=== PATIENT | female | born 1995 | race Caucasian/White ===

== ENCOUNTER 2024-05-15 11:33 | Outpatient (AMB) | payer OTHER, SELFPAY ==
--- NOTE | 2024-05-15 11:38 | HO.NEPHOV ---
Vital Signs 05/15/24 11:40 Height 5 ft 8 in Weight 287 lb 6 oz BMI 43.7 BP 92/60 Blood Pressure Location Lt brachial Position Sitting Pulse 78 Pulse Source Pulse Oximeter Pulse Oximetry (%) 97 Oxygen Delivery Method Room Air Intake Visit Reasons: DX CKD- Conf Tape Control Skin Or Spar Mill Operator Required: No Accompanied by: Self / Same As Patient Allergies No Known Allergies Allergy (Verified 05/15/24 11:42) HPI Comments Details: I had the privilege of seeing April in consultation and transfer care for high serum creatinine. She was seen by fire investigator in [facility] regarding possible kidney disease. She had a serum creatinine 1.4 in November of 2021 which had improved to 1.3 in December of 2022 which further improved to 1.1 in April last year. She had a gallbladder surgery in 2010 but is unsure about her serum creatinine at that time. She had another set of blood work done in 2017 as routine checkup. She claimed that nobody had mentioned any abnormal serum creatinine on both of those occasions. She has no history of recurrent UTI as a child. She has no history of any cocaine use. She has gained about 100 lb in weight when she went to college. She is not a diabetic . She has no joint pains, joint swellings, pedal edema, microscopic hematuria, recurrent sore throat, sinusitis, photosensitivity, skin rashes. She has no family history of any renal diseases, renal replacement or transplantation. She has no history of any cardiac issues. He is not known to have any proteinuria but was mentioned that she has had microscopic hematuria. She had COVID in January of 2022. She denies any nephrolithiasis, hearing deficits. She had some tiredness and hair loss in 2021 for which she was tested for hypothyroidism which was negative but was found to have a serum creatinine of 1.4 that time. Her blood pressure always have been well controlled. She had been investigated for lupus and other autoimmune conditions which were all negative. Renal ultrasound done in February of 2023 showed a right kidney of 10.4 cm and left kidney of 10.9 cm. She has history of right ovarian cyst removal in 2021. She is concerned about her serum creatinine. She had undergone genetic testing which was negative for any renal diseases. She is trying to conceive for the last one year. She maintains good hydration and avoids nonsteroidal anti-inflammatories. She had seen a maternal medicine physician by tele health in [place] prior to her relocating to [place]. She did not have any new active complaints at the time of this office visit. [facility] Medical History (Updated 05/15/24 @ 12:30 by Wilman Mcclain MD) Obesity Migraine GERD (gastroesophageal reflux disease) Chronic kidney disease, stage 3 Anxiety Surgical History History of removal of ovarian cyst Hx of cholecystectomy Family History Brother Heart disease Paternal Grandmother Leukemia Maternal Aunt Ovarian cancer Maternal Uncle Esophageal cancer Social History (Updated 05/15/24 @ 11:45 by Nadira Rios MA) Alcohol intake: current Comment: Socially Patient Tobacco Use Status: Never used Tobacco Review of Systems Const All systems reviewed & are unremarkable except as noted in HPI and below Physical Exam Vital Signs: Last Vital Signs Pulse 78 05/15/24 11:40 BP 92/60 05/15/24 11:40 Pulse Ox 97 05/15/24 11:40 Oxygen Delivery Method Room Air 05/15/24 11:40 BMI result Body Mass Index 43.7 Const General: comfortable and no acute distress Orientation/consciousness: patient oriented x3 HEENT Head: Yes normocephalic Mouth: Normal oral and palatal mucosa present Eyes EOM: EOMs intact bilaterally Neck Neck: Yes supple Resp Auscultation: clear to auscultation bilaterally Cardio Jugular venous distension: no JVD Rate: regular rate GI Palpation (GI): Soft to palpation Auscultation: normal bowel sounds General: Yes no CVA tenderness Back/Spine/Pelvis Back: no CVA tenderness Skin General skin exam: no rashes or lesions noted Neuro General: patient oriented x3 and moves all extremities Extrem General: Yes no pedal edema Results Reviewed Nephrology Results: No Data to Display Assessment & Plan Assessment & Plan (1) Serum creatinine raised: Code(s): R79.89 - Other specified abnormal findings of blood chemistry Category: Medical Plan She had a serum creatinine 1.4 in November of 2021 which had improved to 1.3 in December of 2022 which further improved to 1.1 in April last year. She had a gallbladder surgery in 2010 but is unsure about her serum creatinine at that time. She had another set of blood work done in 2018 as routine checkup. She claimed that nobody had mentioned any abnormal serum creatinine on both of those occasions. She had COVID in January of 2022. She is unsure whether she had any tubular injury at that time. No history of recurrent UTI as a child. She has no history of any cocaine use/Hepatitis/HIV. Renal ultrasound done in February of 2023 showed a right kidney of 10.4 cm and left kidney of 10.9 cm. She is trying to retrieve medical records from 27/06 and 2017 to see what her serum creatinine was at that time. She had genetic testing done for renal disease which was negative. I have ordered further workup including creatinine clearance. She has not had a renal biopsy. She is not known to have any hypertension, proteinuria. She has history of microscopic hematuria giving a differential diagnosis of IgA nephropathy or thin basement membrane disease. She maintains good hydration and avoid nonsteroidal anti-inflammatories. I did not make any medication changes today. All these have been explained detail. Time spent retrieving all the records from [place], patient encounter and documentation 59 minutes. Answered all questions. Follow-up appointment given in a month. Orders: Orders Electrolytes Today R7. - Other specified abnormal findings of blood chemistry Calcium Today R79.89 - Other specified abnormal findings of blood chemistry Parathyroid Hormone Intact Today R79. - Other specified abnormal findings of blood chemistry Complement C4 Today R79. - Other specified abnormal findings of blood chemistry Anti Glomerular Basement Memb Today R7. - Other specified abnormal findings of blood chemistry Myeloperoxidase Antibody Today R79.89 - Other specified abnormal findings of blood chemistry Anti DNA DS Antibody Today R79.89 - Other specified abnormal findings of blood chemistry Creatinine Clearance Urine 24U Today R79.89 - Other specified abnormal findings of blood chemistry Protein Creatinine Ratio, Ur Today R79.89 - Other specified abnormal findings of blood chemistry UA and rflx microscopic Today R79.89 - Other specified abnormal findings of blood chemistry Blood Urea Nitrogen Today R79.89 - Other specified abnormal findings of blood chemistry Creatinine Today R79.89 - Other specified abnormal findings of blood chemistry Vitamin D 25-OH Total Today R79.89 - Other specified abnormal findings of blood chemistry Immunofixation Pnl, Serum Today R79.89 - Other specified abnormal findings of blood chemistry Complement C3 Today R79.89 - Other specified abnormal findings of blood chemistry Proteinase 3 PR3 Antibodies Today R79.89 - Other specified abnormal findings of blood chemistry Hepatitis B Core Antibody Today R79.89 - Other specified abnormal findings of blood chemistry Hepatitis B Surface Antigen Today R79.89 - Other specified abnormal findings of blood chemistry Coding Level of Care Code New Pt Level 5 (70910) Diagnoses Serum creatinine raised R79.89
[2024-05-15 11:40] VITALS: BP 92/60; PULSE 78; O2SAT 97; BMI 43.7
== END 2024-05-15 12:36 | disposition home or self-care (01) ==
PROVIDERS: Visit Provider Internal Medicine Nephrology
DX: R79.89 Other specified abnormal findings of blood chemistry (principal)
CPT/HCPCS: 99204

== ENCOUNTER → 2024-05-15 11:33 | Outpatient (BNVA) | payer OTHER, SELFPAY | PROVIDERS: Visit Provider Internal Medicine Nephrology ==

== ENCOUNTER 2024-05-29 07:00 | Outpatient (REF) | payer OTHER, SELFPAY ==
[2024-05-29 08:15] LABS: Anion Gap 10 (12-20); Blood Urea Nitrogen 16 mg/dL (9-16); Calcium 9.3 mg/dL (8.4-10.2); Carbon Dioxide 22 mmol/L (22-29); Chloride 110 mmol/L (96-108); Estimated Glomerular Filt Rate 57; Potassium 3.9 mmol/L (3.3-5.1); Sodium 138 mmol/L (135-145)
[2024-05-29 08:17] LABS: Parathyroid Hormone Intact 92.8 pg/mL (8.7-77.1)
[2024-05-29 08:33] LABS: HBc Num1 0.09 S/CO (0.00-0.79); HBsAGNum1 0.27 S/CO (0.00-0.99); Hepatitis B Core Antibody Nonreactive (Nonreactive); Hepatitis B Surface Antigen Negative (Negative); Vitamin D 25-OH Total 42.8 ng/mL (>30)
[2024-05-29 08:36] LABS: Appearance Urine Cloudy; Color Urine Yellow; Glucose Urine UA Negative (Negative); Leukocyte Esterase Urine Moderate (2+) (Negative); Nitrite Urine Negative (Negative); Specific Gravity - Urine 1.025 (1.005-1.025); UMIC TRIGGER UA YES; Urine Blood Moderate (2+) (Negative); Urine Ketones Negative (Negative); Urine Protein Negative (Neg-Trace)
[2024-05-29 08:57] LABS: Bacteria Urine 4+ (None Seen); Hyaline Casts Urine 0-2 /LPF (0-2); WBC Urine >50 /HPF (0-5)
[2024-05-29 09:06] LABS: Creatinine Urine 193.75 mg/dL; Protein/Creatinine Ratio, Ur 0.06 (<0.2); Total Protein Urine Random 11 mg/dL (<12)
[2024-05-29 10:29] LABS: Total Volume 24 Hour Urine 4000 mL
[2024-05-29 11:12] LABS: Creatinine, 24Hr Urine 1.7 G/Day (1.0-2.0); Creatinine, mg/dL 42.02
[2024-05-29 13:49] LABS: Creatinine (CrCl) 1.12 mg/dL (0.5-1.4); Creatinine Clearance 104.2 mL/min (85-125)
[2024-05-31 20:10] LABS: Anti DNA DS Antibody <1 IU/mL; Anti Glomerular Basement Memb <1.0 AI; Myeloperoxidase Antibody <1.0 AI; Proteinase 3 PR3 Antibodies <1.0 AI
[2024-06-01 18:28] LABS: IgA 227 mg/dL (47-310); IgG 856 mg/dL (600-1640); IgM 95 mg/dL (50-300)
[2024-06-02 11:43] LABS: Complement C3 157 mg/dL (83-193)
== END 2024-05-29 07:01 | disposition home or self-care (01) ==
LOC: HO.LAB 07:00
PROVIDERS: PCP Nurse Practitioner Family; Visit Provider Internal Medicine Nephrology
DX: R79.89 Other specified abnormal findings of blood chemistry (principal)
CPT/HCPCS: 36415; 80051; 81001; 82306; 82310; 82565; 82570; 82575; 82784; 83520; 83970; 84156; 84520; 86021; 86160; 86225; 86334; 86704; 87340

== ENCOUNTER 2024-06-19 11:48 | Outpatient (AMB) | payer OTHER, SELFPAY ==
--- NOTE | 2024-06-19 12:00 | HO.NEPHOV_ITS ---
Vital Signs 06/19/24 12:02 Height 5 ft 8 in Weight 289 lb 4 oz BMI 44.0 BP 120/60 Blood Pressure Location Lt brachial Position Sitting Pulse 85 Pulse Source Pulse Oximeter Pulse Oximetry (%) 97 Oxygen Delivery Method Room Air Intake Visit Reasons: 1 mo follow up-Conf Business Improvement Manager Required: No Accompanied by: Self / Same As Patient Allergies No Known Allergies Allergy (Verified 06/19/24 12:01) HPI Comments Details: I had the privilege of seeing April in follow up for high serum creatinine. She was seen by cloud infrastructure architect in [facility] regarding possible kidney disease. She had a serum creatinine 1.4 in November of 2021 which had improved to 1.3 in December of 2022 which further improved to 1.12 now. She had taken Topamax 100 mg for at least a year and a half prior to creatinine of 1.4( She had nausea , diarrhea with poor appetite prior to that) She had a gallbladder surgery in 2010 but is unsure about her serum creatinine at that time. She had another set of blood work done in 2017 as routine checkup. She claimed that nobody had mentioned any abnormal serum creatinine on both of those occasions. She has no history of recurrent UTI as a child. She has no history of any cocaine use. She has gained about 100 lb in weight when she went to college. She is not a diabetic . She has no joint pains, joint swellings, pedal edema, microscopic hematuria, recurrent sore throat, sinusitis, photosensitivity, skin rashes. She has no family history of any renal diseases, renal replacement or transplantation. She has no history of any cardiac issues. He is not known to have any proteinuria but was mentioned that she has had microscopic hematuria. She had COVID in January of 2022. She denies any nephrolithiasis, hearing deficits. She had some tiredness and hair loss in 2021 for which she was tested for hypothyroidism which was negative but was found to have a serum creatinine of 1.4 that time. Her blood pressure always have been well controlled. She had been investigated for lupus and other autoimmune conditions which were all negative. Renal ultras ound done in February of 2023 showed a right kidney of 10.4 cm and left kidney of 10.9 cm. She has history of right ovarian cyst removal in 2021. She had undergone genetic testing which was negative for any renal diseases. She is trying to conceive for the last one year. She maintains good hydration and avoids nonsteroidal anti-inflammatories. She had seen a maternal medicine physician by [facility] in [place] prior to her relocating to [place]. She is now. Her LMP was May 05 2024. She did not have any new active complaints at the time of this office visit. [facility] Medical History (Updated 05/15/24 @ 12:30 by Wilman Mcclain MD) Obesity Migraine GERD (gastroesophageal reflux disease) Chronic kidney disease, stage 3 Anxiety Surgical History History of removal of ovarian cyst Hx of cholecystectomy Family History Brother Heart disease Paternal Grandmother Leukemia Maternal Aunt Ovarian cancer Maternal Uncle Esophageal cancer Social History Alcohol intake: current Comment: Socially Patient Tobacco Use Status: Never used Tobacco Review of Systems Const All systems reviewed & are unremarkable except as noted in HPI and below Physical Exam Vital Signs: Last Vital Signs Pulse 85 06/19/24 12:02 BP 120/60 06/19/24 12:02 Pulse Ox 97 06/19/24 12:02 Oxygen Delivery Method Room Air 06/19/24 12:02 BMI result Body Mass Index 44.0 Const General: comfortable and no acute distress Orientation/consciousness: patient oriented x3 HEENT Head: Yes normocephalic Mouth: Normal oral and palatal mucosa present Eyes EOM: EOMs intact bilaterally Neck Neck: Yes supple Resp Auscultation: clear to auscultation bilaterally Cardio Jugular venous distension: no JVD Rate: regular rate GI Palpation (GI): Soft to palpation Auscultation: normal bowel sounds General: Yes no CVA tenderness Back/Spine/Pelvis Back: no CVA tenderness Skin General skin exam: no rashes or lesions noted Neuro General: patient oriented x3 and moves all extremities Extrem General: Yes no pedal edema Results Reviewed Nephrology Results: Sodium 138 mmol/L (135-145) 05/29/24 Potassium 3.9 mmol/L (3.3-5.1) 05/29/24 Chloride 110 mmol/L (96-108) H 05/29/24 Carbon Dioxide 22 mmol/L (22-29) 05/29/24 BUN 16 mg/dL (9-16) 05/29/24 Creatinine 1.12 mg/dL (0.5-1.4) 05/29/24 Calcium 9.3 mg/dL (8.4-10.2) 05/29/24 PTH Intact 92.8 pg/mL (8.7-77.1) H 05/29/24 Urine Protein Negative mg/dL (Neg-Trace) 05/29/24 Urine Creatinine 193.75 mg/dL 05/29/24 Protein/Creatinin Ratio 0.06 (<0.2) 05/29/24 Assessment & Plan Assessment & Plan (1) Serum creatinine raised: Code(s): R79.89 - Other specified abnormal findings of blood chemistry Category: Medical Plan She had a serum creatinine 1.4 in November of 2021 which had improved to 1.3 in December of 2022 which further improved to 1.12 now. She had a gallbladder surgery in 2010 but is unsure about her serum creatinine at that time. She had another set of blood work done in 2017 as routine checkup. She claimed that nobody had mentioned any abnormal serum creatinine on both of those occasions. She had COVID in January of 2022. She is unsure whether she had any tubular injury at that time. No history of recurrent UTI as a child. She has no history of any cocaine use/Hepatitis/HIV. Renal ultrasound done in February of 2023 showed a right kidney of 10.4 cm and left kidney of 10.9 cm. She is trying to retrieve medical records from 27/06 and 2017 to see what her serum creatinine was at that time. She had genetic testing done for renal disease which was negative. Her further workup was negative. Her creatinine clearance was normal. She has not had a renal biopsy. She is not known to have any hypertension, proteinuria. She has history of microscopic hematuria giving a differential diagnosis of IgA nephropathy or thin basement membrane disease. She maintains good hydration and avoid nonsteroidal anti-inflammatories. I did not make any medication changes today. No renal biopsy indicated now. Answered all questions. Follow-up appointment given in 6 months Orders: Orders Creatinine 6 Months R79.89 - Other specified abnormal findings of blood chemistry Blood Urea Nitrogen 6 Months R79.89 - Other specified abnormal findings of blood chemistry Electrolytes 6 Months R79.89 - Other specified abnormal findings of blood chemistry Coding Level of Care Code Est Pt Level 4 (14612) Diagnoses Serum creatinine raised R79.89
[2024-06-19 12:02] VITALS: BP 120/60; PULSE 85; O2SAT 97; BMI 44.0
== END 2024-06-19 12:21 | disposition home or self-care (01) ==
PROVIDERS: Visit Provider Internal Medicine Nephrology
DX: R79.89 Other specified abnormal findings of blood chemistry (principal)
CPT/HCPCS: 99214

== ENCOUNTER 2024-07-10 09:38 | Outpatient (AMB) | payer OTHER, SELFPAY ==
--- NOTE | 2024-07-10 09:42 | MHC.PC.OV ---
Vital Signs 07/10/24 09:49 Height 5 ft 6.34 in Weight 289 lb 8 oz BMI 46.2 BP 116/68 Blood Pressure Location Lt brachial Position Sitting Pulse 78 Pulse Source Pulse Oximeter Pulse Oximetry (%) 98 Oxygen Delivery Method Room Air Intake Visit Reasons: Est. Care Intake Note: New patient visit Hoist Cylinder Loader Required: No Allergies No Known Allergies Allergy (Verified 07/10/24 09:43) Tobacco use date assessed: 07/10/24 Dental Screening Dental Screen Date: 07/10/24 Did you have a dental visit in the last 12 months?: Yes Did you have a dental problem in the last 6 months where you did not have access to dental care?: No Was dental information given to patient?: Patient has dentist HPI HPI Comments History of Present Illness Details The patient is a 29 year old female with a past medical history of ELKE, migraines, presenting to [facility]. Moved from [place]. 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 Has upcoming establish with computerized mill mill recorder at [facility]. She continues on buspar, celexa and trazodone for behavioral health CKD is followed by nephrology. She has had work up for secondary causes ROS see above scalp rash PHYSICAL EXAM: GENERAL: Alert and oriented x 3. NAD EYES: EOMI. Anicteric. HENT: Moist mucous membranes. No scleral icterus. No cervical lymphadenopathy. LUNGS: Clear to auscultation bilaterally. CARDIOVASCULAR: Regular rate and rhythm. Soft murmur ABDOMEN: Soft, non-tender +bs EXTREMITIES: No edema. Non-tender. SKIN: Dermatitis of the scalp NEUROLOGIC: No focal neurological deficits. CN II-XII grossly intact PSYCHIATRIC: Cooperative. Appropriate mood and affect [facility] Medical History (Updated 07/16/24 @ 00:50 by Heide Barth MD) Obesity Migraine GERD (gastroesophageal reflux disease) Chronic kidney disease, stage 3 Anxiety Surgical History History of removal of ovarian cyst Hx of cholecystectomy Family History (Updated 07/10/24 @ 09:49 by Shy Whitehead CMA) Brother Heart disease Paternal Grandmother Leukemia Maternal Aunt Ovarian cancer Maternal Uncle Esophageal cancer Maternal Grandfather Alcoholism Other FH: mental illness Substance abuse Social History (Updated 07/10/24 @ 09:44 by Shy Whitehead CMA) Housing: House Alcohol intake: current Comment: Socially Patient Tobacco Use Status: Never used Tobacco e-Cigarette/Vaping Use: Never Used service: No Current occupational status: employed 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 1. Little interest or pleasure in doing things: not at all 2. Feeling down, depressed, or hopeless: not at all 3. Trouble falling or staying asleep, or sleeping too much: several days 4. Feeling tired or having little energy: several days 5. Poor appetite or overeating: several days 6. Feeling bad about yourself - or that you are a failure or have let yourself or your family down: not at all 7. Trouble concentrating on things, such as reading the newspaper or watching television: not at all 8. Moving or speaking so slowly that other people could have noticed. Or the opposite - being so fidgety or restless that you have been moving around a lot more than usual: not at all 9. Thoughts that you would be better off or of hurting yourself in some way: not at all Total score: 3 Depression Screening Interpretation: Positive Depression Screening Follow-up: Existing condition and Community Mental Health Worker F/U Depression Screening Done: Yes 01236 - PHQ-9 Billing: Yes Source: Developed by Drs. Tio Reynoso, Stacie Stanley, Mateusz Espinal and colleagues, with an educational annette from [employer]. Thrive Questionnaire Date Thrive assessed: 07/09/24 I am a: Patient What is your living situation today?: I have a steady place to live Within the past 12 months, did the food you bought not last and you didn't have the money to get more?: Never true Within the past 12 months, did you worry whether your food would run out before you got money to buy more?: Never true Do you have trouble paying for medicines?: No Do you have trouble getting transportation to medical appointments?: No Do you have trouble paying your heating and electricity bill?: No Do you have trouble taking care of your child, family member or friend?: No Do you have trouble with day-to-day activities such as bathing, preparing meals, shopping, managing finances, etc.?: No Are you currently unemployed and looking for a job?: No Are you interested in more education?: Yes Please select the resources that you would like help with: Childcare Currently or been in a relationship where the following occur: No concerns reported THRIVE Score: 0 AUDIT C Alcohol Use Questionnaire (AUDIT-C) 1. How often do you have a drink containing alcohol?: 2-4 times a month 2. How many drinks containing alcohol do you have on a typical day when you are drinking?: 3 or 4 3. How often do you have six or more drinks on one occasion?: Less than monthly Total Score: 4 RADHA-7 AMB Questionnaire RADHA-7 Date RADHA - 7 assessed: 07/10/24 Feeling nervous, anxious, or on edge: 3 = Nearly every day Not being able to stop or control worryin = Nearly every day Worrying too much about different things: 3 = Nearly every day Trouble relaxin = Nearly every day Being so restless that it is hard to sit still: 2 = More than half the days Becoming easily annoyed or irritable: 1 = Several days Feeling afraid as if something awful might happen: 3 = Nearly every day Total RADHA-7 score (0-4 normal; 5-9 mild; 10-14 moderate; 15-21 severe): 18 Source: Developed by Drs. Tio Reynoso, Stacie Stanley, Mateusz Espinal and colleagues, with an educational annette from [email or web address]. RADHA-7 Assessment Billing RADHA-7 Assessment Tool: RADHA-7 Assessment 45136 Physical exam (Primary Care) Vital Signs: Last Vital Signs Pulse 78 07/10/24 09:49 BP 116/68 07/10/24 09:49 Pulse Ox 98 07/10/24 09:49 Oxygen Delivery Method Room Air 07/10/24 09:49 BMI result Body Mass Index 46.2 Tobacco/Smoking Status: Tobacco use Status Tobacco use date assessed 07/10/24 07/10/24 09:45 Patient Tobacco Use Status Never used Tobacco 07/10/24 09:45 e-Cigarette/Vaping Use Never Used 07/10/24 09:45 PHQ-9: PHQ-9 Score PHQ-9: Total score 3 07/16/24 00:52 Depression Screening Interpretation: Positive Depression Screening Follow-up: Existing condition and Community Mental Health Worker F/U Thrive Assessment: Date of Thrive Assessment Date Thrive assessed 07/09/24 07/10/24 09:45 Currently or been in a relationship where the following occur: No concerns reported Coding Level of Care Code New Pt Level 4 (76755) Diagnoses Encounter to establish care Z76.89 Anxiety F41.9 Additional Codes RADHA-7 Assessment Billing - RADHA-7 Assessment Tool: RADHA-7 Assessment 38977 ([id number]) PHQ-9 - 69185 - PHQ-9 Billing: Yes ([id number]) Assessment & Plan Assessment & Plan (1) Encounter to establish care: Code(s): Z76.89 - Persons encountering health services in other specified circumstances Category: Medical Plan: 29 y/o female to establish care. past medical,surgical, social and family history reviewed. (2) Anxiety: Code(s): F41.9 - Anxiety disorder, unspecified Category: Medical Plan: Reviewed ACOG guidelines for her medications She has an upcoming appt with computerized mill mill recorder Orders: Orders UA and rflx microscopic 07/10/24 R82.90 - Unspecified abnormal findings in urine TSH reflex Free T4 07/10/24 L65.9 - Nonscarring hair loss, unspecified, R21 - Rash and other nonspecific skin eruption Urine Culture 07/10/24 R79.89 - Other specified abnormal findings of blood chemistry Complete Blood Count Auto Diff 07/10/24 Z34.90 - Encounter for supervision of normal , unspecified, unspecified trimester IRON PROFILE 07/10/24 N18.30 - Chronic kidney disease, stage 3 unspecified, R79.89 - Other specified abnormal findings of blood chemistry, Z34.90 - Encounter for supervision of normal , unspecified, unspecified trimester Thyroid Peroxidase Antibodies 07/10/24 L65.9 - Nonscarring hair loss, unspecified, R21 - Rash and other nonspecific skin eruption Other Ref Test - Misc 07/10/24 N18.30 - Chronic kidney disease, stage 3 unspecified, R82.90 - Unspecified abnormal findings in urine Hemoglobin A1c 07/10/24 R73.01 - Impaired fasting glucose Medications: New clobetasol 0.05% 1 appl topical BEDTIME 118 mL 0RF 4 weeks
[2024-07-10 09:49] VITALS: BP 116/68; PULSE 78; O2SAT 98; BMI 46.2
== END 2024-07-10 10:49 | disposition home or self-care (01) ==
PROVIDERS: PCP Internal Medicine; Visit Provider Internal Medicine
DX: Z76.89 Persons encountering health services in other specified circumstances (principal); F41.9 Anxiety disorder, unspecified

== ENCOUNTER → 2024-07-10 09:38 | Outpatient (BNVA) | payer OTHER, SELFPAY | PROVIDERS: Visit Provider Internal Medicine | DX: Z76.89 Persons encountering health services in other specified circumstances (principal); O26.839 Pregnancy related renal disease, unspecified trimester; N18.30 Chronic kidney disease, stage 3 unspecified; O99.340 Other mental disorders complicating pregnancy, unspecified trimester; F41.9 Anxiety disorder, unspecified; Z3A.00 Weeks of gestation of pregnancy not specified | CPT/HCPCS: 96127 ==

== ENCOUNTER 2024-07-10 10:52 | Outpatient (REF) | payer OTHER, SELFPAY ==
[2024-07-10 14:20] LABS: MANUAL DIFF FLAG NO
[2024-07-10 14:31] LABS: Basophils Percent Auto 0.3 % (0-2); Eosinophils Absolute Auto 0.1 X10*3/uL (0.0-0.4); Eosinophils Percent Auto 0.6 % (0-4); Hematocrit 40.4 % (37.0-47.0); Hemoglobin 13.5 g/dl (12.0-16.0); Imm Gran Abs Auto 0.05 X10*3/uL (0.00-0.03); Imm Gran Pct Auto 0.5 % (0.0-0.4); Lymphocytes Absolute Auto 2.5 X10*3/uL (1.2-4.9); Lymphocytes Percent Auto 25.5 % (20-40); Mean Corpuscular HGB Conc 33.4 g/dl (31.0-35.0); Mean Corpuscular Hemoglobin 30.3 pg (27.0-33.0); Mean Corpuscular Volume 90.6 fL (80.0-98.0); Mean Platelet Volume 10.5 fL (9.4-12.3); Monocytes Absolute Auto 0.5 X10*3/uL (0.1-1.2); Monocytes Percent Auto 4.6 % (2-11); Neutrophils Absolute Auto 6.7 x10*3/uL (2.0-8.3); Neutrophils Percent Auto 68.5 % (45-73); Platelet Count 295 X10*3/uL (160-400); Red Blood Count 4.46 X10*6/uL (4.20-5.50); Red Cell Distribution Width 12.1 % (11.0-16.0); White Blood Count 9.8 X10*3/uL (4.8-10.8)
[2024-07-10 14:31] LABS: Appearance Urine Clear; Color Urine Yellow; Glucose Urine UA Negative (Negative); Leukocyte Esterase Urine Moderate (2+) (Negative); Nitrite Urine Negative (Negative); UMIC TRIGGER UA YES; Urine Blood Trace (Negative); Urine Ketones Negative (Negative); Urine Protein Negative (Neg-Trace)
[2024-07-10 14:37] LABS: Bacteria Urine 1+ (None Seen); Hyaline Casts Urine 0-2 /LPF (0-2); RBC Urine 0-2 /HPF (0-2)
[2024-07-10 14:50] LABS: Estimated Average Glucose 91 mg/dL; Hemoglobin A1C 100.9289 umol/L; Hemoglobin A1c % 4.8 % (<6.0); Total Hemoglobin (HGBA1C) 3502.0171 umol/L
[2024-07-10 15:12] LABS: Iron 126 mcg/dL (30-160); Percent Iron Saturation 43 % (15-50); Total Iron Binding Capacity 294 mcg/dL (228-428); Unsaturated Iron Binding 168 ug/dL
[2024-07-10 15:32] LABS: TSH reflex Free T4 1.63 uIU/mL (0.32-4.0)
[2024-07-11 18:17] LABS: Thyroid Peroxidase Antibodies 1 IU/mL (<9)
== END 2024-07-10 10:53 | disposition home or self-care (01) ==
LOC: HO.WFDLDS 10:52
PROVIDERS: Referring Provider Internal Medicine Nephrology; Visit Provider Internal Medicine
DX: Z34.90 Encounter for supervision of normal pregnancy, unspecified, unspecified trimester (principal); R79.89 Other specified abnormal findings of blood chemistry; L65.9 Nonscarring hair loss, unspecified; R21 Rash and other nonspecific skin eruption; N18.30 Chronic kidney disease, stage 3 unspecified; R82.90 Unspecified abnormal findings in urine; R73.01 Impaired fasting glucose
CPT/HCPCS: 81001; 83036; 83540; 84443; 85025; 86235; 86376; 87086

== ENCOUNTER 2024-10-26 10:53 | Outpatient (AMB) | payer OTHER, SELFPAY ==
--- NOTE | 2024-10-26 11:07 | A.OFFPC_ITS ---
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 Required: No Allergies No Known Allergies Allergy (Verified 10/26/24 11:27) Medication List - Last Reconciled 10/26/24 by Michaela Collado, MULTI SITE LEASING CONSULTANT-BC buspirone 30 mg PO DAILY citalopram 40 mg PO DAILY PNV,calcium 10-cgpz-[id number] acid 27 mg iron- 1 mg (M-Yulia Plus) 1 tab PO DAILY Tobacco use date assessed: 10/26/24 Dental Screening Dental Screen Date: 10/26/24 Did you have a dental visit in the last 12 months?: Yes Did you have a dental problem in the last 6 months where you did not have access to dental care?: No Was dental information given to patient?: Patient has dentist HPI HPI Comments History of Present Illness Details 29 y/o F with family hx of ovarian ca (m aternal aunt), migraines w/o aura, MDD, RADHA, Obesity, heart murmur Family hx: brother w/ Aortic stenosis Social: works at [employer] in [employer], ( [employer]) Health Maintenance: Flu UTD Tdap will get during current 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 - The patient initially noticed the rash in May, characterized by its locat ion around the halo of her scalp and described by her hairdresser as resembling psoriasis. - She reports a history of long-term debra r thinning and loss, potentially exacerbated by prior use of topiramate, which she discontinued over a year ago due to side effects and plans to conceive. - She is currently managing the scalp co ndition with a shampoo called T- cell, which has offered some symptomatic relief. - Currently , the patient expres sed concern about an upcoming gestational diabetes test, but she denies any current symptoms of gestational diabetes. - She takes medication for anxiety?cital opram and BuSpar + effect - Previously diagnosed with stage 3 hospitality specialist brock kidney disease, her recent lifestyle adjustments have improved her renal function with the latest GFR at 99. Managed by Renal. CKD most likely r/t topirmate. - History of migraines, significantly im proved since and discontinuation of topiramate. - A heart murmur was detected in childho od; no specific diagnosis was given. Brother has a history of aortic stenosis. She has had echo imaging. No need for Cards f/u Exam Awake alert NAD pink patch posterior scalp with white crusting RRR, 1/6 systolic murmur LS CTAB Mood and affect appropriate Discussion Notes During the consultation, we discussed the patient's current scalp condition, which appears consistent with psoriasis, and a plan for referral to dermatology was agreed upon for further evaluation and management. We also reviewed her medication regimen for anxiety; she reported current symptoms are well- controlled. We reviewed her history of migraines, which have improved during . The presence of a benign-sounding heart murmur was noted. The importance of using the patient portal for communication and managing her health care needs was emphasized. Assessment and Plan 1. Scalp Psoriasis: The patient will be referred to dermatology for further assessment and management of her psoriasis symptoms. Cont to use shampoo 2. Anxiety: The patient's anxiety is sta ble on current medications, citalopram and BuSpar, with no immediate changes required. 3. Stage 3 Chronic Kidney Disease: The p atient's kidney function shows impro vement, and current lifestyle adjustments should continue with regular monitoring. Likely related to topiramate, monitored by Renal 4. : Allay concerns regarding t he gestational diabetes test as there are no current symptomatic indicators; continue routine care follow- ups. Due in February 5. Migraine: The patient has observed fe wer migraines since began, and management with Tylenol is recommended for headaches. 6. Heart Murmur: A flow murmur is noted; no cardiology referral needed unless advised by obstetric care if concerns arise. Patient Instructions - Continue using [place] shampoo as direc jake and await dermatology appointment. - Maintain current medication regimen fo r anxiety, but ensure adequate supplies and notify seven days before needing refills. - Follow dietary recommendations that re sulted in improved kidney function. - Attend routine visits for pre gnancy-related care and discuss concerns with your FRENCH BINDER. - Utilize the patient portal for appoint ments, medication refills, or inquiries as discussed. - Consider B vitamins for motion sicknes s during travel, if necessary. - RTO 3-4 months routine chec k up, sooner PRN Consent Patient was informed and verbally consented to the use of an ambient scribe for clinic note documentation during this visit. Total time spent caring for the patient today was 42 minutes. This includes time spent before the visit reviewing the chart, time spent during the visit, and time spent after the visit on documentation, reviewing laboratory results, diagnostic imaging, medications, performing a medically necessary evaluation, counseling on diagnoses, care coordination, ordering appropriate tests, ordering appropriate medications, review of tests performed by other providers, reporting test results with the patient, communication with other healthcare providers. [facility] Medical History Obesity Migraine GERD (gastroesophageal reflux disease) Chronic kidney disease, stage 3 Anxiety Surgical History History of removal of ovarian cyst Hx of cholecystectomy Family History Brother Heart disease Paternal Grandmother Leukemia Maternal Aunt Ovarian cancer Maternal Uncle Esophageal cancer Maternal Grandfather Alcoholism Other FH: mental illness Substance abuse Social History Housing: House Alcohol intake: current Comment: Socially Patient Tobacco Use Status: Never used Tobacco e-Cigarette/Vaping Use: Never Used service: No Current occupational status: employed 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 Current occupational exposures/hazards: No Cognitive needs: No Hearing needs: No Vision needs: Yes (glasses) Questionnaire PHQ-9 Over the last 2 weeks, how often have you been bothered by any of the following problems? 1. Little interest or pleasure in doing things: not at all 2. Feeling down, depressed, or hopeless: not at all 3. Trouble falling or staying asleep, or sleeping too much: nearly every day 4. Feeling tired or having little energy: nearly every day 5. Poor appetite or overeating: several days 6. Feeling bad about yourself - or that you are a failure or have let yourself or your family down: not at all 7. Trouble concentrating on things, such as reading the newspaper or watching television: not at all 8. Moving or speaking so slowly that other people could have noticed. Or the opposite - being so fidgety or restless that you have been moving around a lot more than usual: not at all 9. Thoughts that you would be better off or of hurting yourself in some way: not at all Total score: 7 Depression Screening Interpretation: Positive Depression Screening Follow-up: Existing condition Depression Screening Done: Yes 38123 - PHQ-9 Billing: Yes Source: Developed by Drs. Tio eRynoso, Stacie Stanley, Mateusz Espinal and colleagues, with an educational annette from [employer]. Thrive Questionnaire Date Thrive assessed: 10/26/24 I am a: Patient What is your living situation today?: I have a steady place to live Within the past 12 months, did the food you bought not last and you didn't have the money to get more?: Never true Within the past 12 months, did you worry whether your food would run out before you got money to buy more?: Never true Do you have trouble paying for medicines?: No Do you have trouble getting transportation to medical appointments?: No Do you have trouble paying your heating and electricity bill?: No Do you have trouble taking care of your child, family member or friend?: No Do you have trouble with day-to-day activities such as bathing, preparing meals, shopping, managing finances, etc.?: No Are you currently unemployed and looking for a job?: No Are you interested in more education?: Yes Please select the resources that you would like help with: None Currently or been in a relationship where the following occur: No concerns reported THRIVE Score: 0 AUDIT C Alcohol Use Questionnaire (AUDIT-C) 1. How often do you have a drink containing alcohol?: 2-4 times a month 2. How many drinks containing alcohol do you have on a typical day when you are drinking?: 3 or 4 3. How often do you have six or more drinks on one occasion?: Less than monthly Total Score: 4 Score Reviewed/Action Taken: Yes RADHA-7 AMB Questionnaire RADHA-7 Date RADHA - 7 assessed: 10/26/24 Feeling nervous, anxious, or on edge: 1 = Several days Not being able to stop or control worryin = Several days Worrying too much about different things: 2 = More than half the days Trouble relaxin = More than half the days Being so restless that it is hard to sit still: 1 = Several days Becoming easily annoyed or irritable: 2 = More than half the days Feeling afraid as if something awful might happen: 3 = Nearly every day Total RADHA-7 score (0-4 normal; 5-9 mild; 10-14 moderate; 15-21 severe): 12 Source: Developed by Drs. Tio Reynoso, Stacie Stanley, Mateusz Espinal and colleagues, with an educational annette from [employer]. RADHA-7 Assessment Billing RADHA-7 Assessment Tool: RADHA-7 Assessment 98296 Physical exam (Primary Care) Vital Signs: Last Vital Signs Temp 96.9 F 10/26/24 11:12 Pulse 80 10/26/24 11:54 Resp 12 10/26/24 11:12 BP 112/66 10/26/24 11:12 Pulse Ox 98 10/26/24 11:12 Oxygen Delivery Method Room Air 10/26/24 11:12 BMI result Body Mass Index 45.2 BMI Assessment/Plan discussion: High BMI High, discussed plan: lifestyle Tobacco/Smoking Status: Tobacco use Status Tobacco use date assessed 10/26/24 10/26/24 11:10 Patient Tobacco Use Status Never used Tobacco 10/26/24 11:10 e-Cigarette/Vaping Use Never Used 10/26/24 11:10 PHQ-9: PHQ-9 Score PHQ-9: Total score 7 10/26/24 11:31 Depression Screening Interpretation: Positive Depression Screening Follow-up: Existing condition Thrive Assessment: Date of Thrive Assessment Date Thrive assessed 10/26/24 10/26/24 11:10 Currently or been in a relationship where the following occur: No concerns reported Coding Level of Care Code Est Pt Level 5 (49889) Complex EM visit Add On G2211 Diagnoses Encounter to establish care Z76.89 , unspecified gestational age Z34.90 Weeks of gestation: unspecified Migraine without aura and without status migrainosus, not intractable G43.009 Intractability: not intractable Migraine type: migraine (< 15 days per month) without aura Status migrainosus presence: without status migrainosus Family history of ovarian cancer Z80.41 Rash R21 Anxiety F41.9 Obesity, morbid, BMI 40.0-49.9 E66.01 Benign heart murmur R01.0 Additional Codes RADHA-7 Assessment Billing - RADHA-7 Assessment Tool: RADHA-7 Assessment 55609 ([id number]) PHQ-9 - 96101 - PHQ-9 Billing: Yes ([id number]) Assessment & Plan Assessment & Plan (1) Encounter to establish care: Code(s): Z76.89 - Persons encountering health services in other specified circumstances Category: Medical (2) : Comment: due in February Code(s): Z34.90 - Encounter for supervision of normal , unspecified, unspecified trimester Category: Medical Qualifiers: Weeks of gestation: unspecified Qualified Code(s): Z34.90 - Encounter for supervision of normal , unspecified, unspecified trimester (3) Migraine: Code(s): G43.909 - Migraine, unspecified, not intractable, without status migrainosus Category: Medical Qualifiers: Intractability: not intractable Migraine type: migraine (< 15 days per month) without aura Status migrainosus presence: without status migrainosus Qualified Code(s): G43.009 - Migraine without aura, not intractable, without status migrainosus (4) Family history of ovarian cancer: Comment: maternal aunt Code(s): Z80.41 - Family history of malignant neoplasm of ovary Category: Medical (5) Rash: Comment: of scalp Code(s): R21 - Rash and other nonspecific skin eruption Category: Medical (6) Anxiety: Code(s): F41.9 - Anxiety disorder, unspecified Category: Medical (7) Obesity, morbid, BMI 40.0-49.9: Code(s): E66.01 - Morbid (severe) obesity due to excess calories Category: Medical Plan: . (8) Benign heart murmur: Code(s): R01.0 - Benign and innocent cardiac murmurs Category: Medical Plan . Orders: Referrals Dermatology Referral R21 - Rash and other nonspecific skin eruption
[2024-10-26 11:12] VITALS: BP 112/66; PULSE 103; RESP 12; TEMP 36.1; O2SAT 98; BMI 45.2
[2024-10-26 11:54] VITALS: PULSE 80
--- OUTSIDE RECORDS SUMMARY | 2024-10-26 13:17 | XMS_ITS | Data Portability ---
Author Organization [place] - [facility], [facility] Address [address] [facility] [place] [address] Assessment No assessment recorded. Plan of Treatment Reminders Order Date Submit Date Provider Last Modified By Organization Details Last Modified Time Details Appointments None recorded. Lab CT + NG DNA, PCR, unspecifi ed specimen 2015 016 DBA_PATCH_2 [id number] [facility], [address] [place], [address] 6 04:17:52 pap, LB + HPV 2014 015 BETTYE Not available 5 14:43:46 Referral None recorded. Procedures None recorded. Surgeries None recorded. Imaging None recorded. Medication Orders Tri-Estar ylla (28) 0.18 mg(7)/0.2 15 mg(7)/0.2 5 mg(7)-0.0 35 mg tablet 2015 016 DBA_PATCH_2 [id number] [facility], [address] [place], [address], 6 04:17:40 Cytotec 100 mcg tablet 2015 016 DBA_PATCH_2 [id number] [id number], [address] [place], [address], 6 04:18:23 metronida zole 500 mg tablet 2014 015 milouphavan [id number], [address] [place], [address], 6 10:01:31 Tri-Estar ylla (28) 0.18 mg(7)/0.2 15 mg(7)/0.2 5 mg(7)-0.0 35 mg tablet 2014 015 INTERFACE [id number], [address] [facility] [place], [address], 5 09:51:59 Patient TargetsNo targets recorded. Patient Instructions Encounter Date Encounter Id Patient Instructions Last Modified By Organization Details Last Modified Time 04/24/2015 [id number] Patient presents for a well woman exam. Her history is unremarkable and her exam is normal. She is less than 26 years old so she has received GC/Chl screening and Pap smear screening as per guidelines of every two years for cytology review with reflex HPV testing if the results are ASCUS. She has been counseled regarding control and safe sex as well as monthly self-breast exams. 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 [email or web address] Not available 04/24/2015 09:26:27 05/14/2016 [id number] Patient presents for a well woman exam. Her history is unremarkable and her exam is normal. She is less than 26 years old so she has received GC/Chl screening and Pap smear screening as per guidelines of every two years for cytology review with reflex HPV testing if the results are ASCUS. She has been counseled regarding control and safe sex as well as monthly self-breast exams. 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 [email or web address] Not available 05/14/2016 09:57:36 Reason for Referral None Reported. Results Created Date Observation Date Name Description Value Unit Range Abnormal Flag Note LastModifiedBy Organization Detail LastModifiedTime 05/19/20 15 05/20/2015 pap, LB + HPV report GYNEC OLOGI EARL CYTOL OGY REPOR T THINP REP PAP TEST WITH HPV REFLE X AND GC/CH LAMYD IA SPECI MEN ADEQU ACY: SATIS FACTO RY FOR EVALU ATION ; ENDOC ERVIC AL/TR ANSFO RMATI ON ZONE COMPO NENT PRESE NT. INTER PRETA TION: NEGAT OSCAR FOR INTRA EPITH ELIAL LESIO N OR MALIG ALEC . Elect lakshmi bass Lore d Out By: ONUR ALEXIS MAN, CT( CP) CLINI EARL INFOR ANDREW N: LMP: 05-14 Sourc e CERVI X/END OCERV IX Numbe r of vials /slid es submi tted 1 Diagn osis / ICD CODE Z01.4 19 Abnor mal Pap Date NG Autom ated presc reeni ng of all liqui d based speci mens is perfo rmed by the Thin rep Imagi ng Systkaci mjeremias s other [place]. The Pap test is a scree lainey test with an inher ent false negat oscar rate. Testi ng perfo rmed at [facility] , [address], [place] [address] CLIA [id number] CL-PO [id number] 7. Not Available [facility] [address] [place], [address], 05/20/2015 14:43:46 05/19/20 15 05/20/2015 CT + NG DNA, PCR, unspe cifie d speci men source Unspec ified Not Available [facility] [address] [place], [address], 05/20/2015 14:43:46 05/19/20 15 05/20/2015 CT + NG DNA, PCR, unspe cifie d speci men chlamydia by DNA Negati ve negati ve Not Available [facility] [address] [place], [address], 05/20/2015 14:43:46 05/19/20 15 05/20/2015 CT + NG DNA, PCR, unspe cifie d speci men GC by DNA Negati ve negati ve Not FDA appro luli for GC/Ch lamyd ia in femal e urine speci mens. Test valid ated by CT for detec ting GC/Ch lamyd ia from this [facility]. Not Available [facility] [address] [facility], [place], [address], 05/20/2015 14:43:46 05/14/20 16 05/17/2016 CT + NG DNA, PCR, unspe cifie d speci men source CVX Not Available [facility] [address] [place], [address] 05/17/2016 13:54:19 05/14/20 16 05/17/2016 CT + NG DNA, PCR, unspe cifie d speci men chlamydia by DNA Negati ve negati ve Not Available [facility] [address] [place], [address] 05/17/2016 13:54:19 05/14/20 16 05/17/2016 CT + NG DNA, PCR, unspe cifie d speci men GC by DNA Negati ve negati ve Not FDA appro luli for GC/Ch lamyd ia in femal e urine speci mens. Test valid ated by [facility] for detec ting GC/Ch lamyd ia from this [facility]. Not Available [facility] [address] [place], [address] 05/17/2016 13:54:19 Result Notes None recorded. Problems Name Problem SNOMED Code Status Onset Date Resolution Date Notes Provider Name and Address Organization Details Recorded Time Cholecystiti s 11524267 Active Zaida nichols null, [facility] 5 09:20:02 Heart murmur 10099870 Active Zaida nichols null, [facility] 5 09:20:02 Seizure disorder 669420909 Active One episode age [age]. Zaida nichols null, [facility] 5 09:20:02 Depressive disorder 64846076 Active Zaida nichols null, [facility] 5 09:20:02 Tampon retained in vagina 586909214 Active ABHI KHAN RO, SHARED SERVICES REPRESENTATIVE [address] [facility], [address] Floor, [place], [address] [place], [place] [address] 5 09:51:56 Problem Notes None recorded. Procedures Surgical History Date Name Laterality Status Provider Name and Address Organization Details Recorded Time 015 Date of Last Pap Smear completed Soraya Calvo [facility] 05/13/2016 16:37:50 Cholecystectomy completed Not Available [facility] 01/03/2015 13:51:18 Imaging Results None recorded. Procedure Notes None recorded. Medical Equipment None Reported. Allergies Allergen ID Allergen Name Allergen Category Reaction Reaction Severity Criticality Documentation Date Start Date Code Code System Note Provider Name and Address Organization Details Recorded Time 930945 No known allergy (situatio n) Not available Not available Not available Not available 01/07/20152013 58709 6003 SNOMED Not Available [facility] 5 17:50:06 No known drug allergies Medications Name Sig Start Date Stop Date Status Note LastModified by Organization Details LastModified Time metronidazo le 500 mg tablet Take 1 tablet(s) twice a day with food, no alcohol 05/14 completed Not Available Not Available Not Available fluoxetine 20 mg tablet 05/14 completed Not Available Not Available Not Available Cytotec [address] 2 tabs under tongue night before procedure and 1 tablet under tongue morning of procedure 2015 active Not Available Not Available Not Avai lable fluoxetine 20 mg capsule 05/14 completed Not Available Not Available Not Available diflorasone 0.05 % topical ointment 05/14 completed Not Available Not Available Not Available fluoxetine active Not Available Not Av ailable Not Available Tri-Estaryl la (28) 0.18 mg(7)/0.215 mg(7)/0.25 mg(7)-0.035 mg tablet TAKE 1 TABLET DAILY 2015 active Not Available Not Available Not Avai lable Vitals Date Recorded Body height Body mass index (BMI) Body weight Systolic blood pressure Diastolic blood pressure Provider Name and Address Organization Details Last Updated DateTime 04/24/2015 172.72 cm 33 kg/m2 85697.54 429 g 116 mm[Hg] 74 mm[Hg] Zaida nichols [facility] 5 09:47:36 Date Recorded Body weight Body mass index (BMI) Body height Systolic blood pressure Diastolic blood pressure Provider Name and Address Organization Details Last Updated DateTime 05/19/2015 06536.13 666 g 33.1 kg/m2 172.72 cm 124 mm[Hg] 84 mm[Hg] Martha Valdez [facility] 5 15:40:49 Date Recorded Body height Body weight Body mass index (BMI) Systolic blood pressure Diastolic blood pressure Provider Name and Address Organization Details Last Updated DateTime 05/14/2016 172.72 cm 439215.3 7 g 38 kg/m2 120 mm[Hg] 80 mm[Hg] Hansa Hernández [facility] 6 10:01:01 Social History Question Answer Notes LastModified by [employer]Notebook[employer]Vaultive ion Details LastModified Time Tobacco Smoking Status Never Smoker Zaida muro, [facility] 04/24/2015 09:20:02 What Is Your Level Of Alcohol Consumption? None Information not available 04/24/2015 How Much Tobacco Do You Smoke? No Information not available 04/24/2015 Sex: Unknown Functional Status None recorded. Mental Status None recorded. Family History Relationship Description Onset Age of this Age Resolved Age Notes LastModified by Organization Details LastModified Time Brother Heart disease [email or web address] t Not available 04/24/2015 09:20:02 Maternal Aunt Carcinoma of cervix [email or web address] t Not available 04/24/2015 09:20:02 Medical History Condition Response Other N Kidney Stones N Blood clots N Breast Cancer N Colon cancer N Benign breast disease N Depression Y Lung Disease N Defects or Inherited Disease N Anesthesia Complications N Headaches/Migraines N Neurological Disorder Y Anxiety Disorder N Arthritis N HSV N Infertility N Interstitial Cystitis N Acid Reflux (GERD) N Cancer N Stroke N Endometriosis N Fibromyalgia N HIV N Spina Bifida N Heart Problems N Sexual Dysfunction N Autoimmune disorder N Thyroid Problems N Kidney or Bladder Problems N GI Problems N Eating Disorder N Anemia N Multiple Sclerosis N Psychiatric Illness N Diabetes N Ovarian Cancer N Blood Transfusions N Bladder disease N None reported by patient N Abnormal Uterine Bleeding N Hyperlipidemia N BrCa positive N Abuse/Domestic Violence N Diverticulitis N Asthma N Bladder Cancer N Hepatitis N Hypertension N Osteoporosis N Thrombophilias N Gynecological History Statement/Question Response Current Control Method Oral Contra ceptives Flow Moderate Frequency of Cycle (Q days) 28 Sexually Active? Y STIs/STDs N Sexual Problems? N Duration of Flow (days) 5 Date of Last Pap Smear 05/28/2015 Age at Menarche 10 Current Control Method BCPs Obstetrics History GPAL:G 0 P 0 0 0 0 Past Encounters Encounter ID Performer Location Encounter Start Date Encounter Closed Date Diagnosis/Indication Diagnosis SNOMED-CT Code Diagnosis ICD10 Code Diagnosis Note [id number] [facility] [address] [place] [address] 01/16/2013 00:00:00 [id number] [facility] [address] [place] [address] 01/21/2014 00:00:00 [id number] [facility] [address] [place] [address] 04/24/2015 08:54:55 04/24/2015 09:47:37 Gynecologic examination 79418353 Pap smears starting at age 21 then q 2 as indicated, encourage healthy diet & exercise, 1200 mg calcium per diet or supplement ation, 600 mg magnesium and 600 iu Vit D per day, encourage safe sex at all times and monthly self breast exam. PAP deferred due to retained tampon, RTO 2 weeks for pap and cultures Contracept ion care education 059005602 Emergency contraception education 389827928 Plan B discussed Tampon ret ained in vagina 346227480 [id number] ABHI Fernández APRN [facility] [place] [address] 05/19/2015 15:18:43 05/19/2015 16:04:35 Screening for malignant neoplasm of cervix 575905049 Z12.4 [id number] ABHI Fernández SHARED SERVICES REPRESENTATIVE [facility]N[address] [place] [address] 05/14/2016 09:55:08 05/14/2016 10:25:29 Gynecologic examination 62683830 Z01.411 Z01.419 Pap smears starting at age 21 then q 2 as indicated, encourage healthy diet & exercise, 1200 mg calcium per diet or supplement ation, 600 mg magnesium and 600 iu Vit D per day, encourage safe sex at all times and monthly self breast exam Contracept ion care education 151032869 Z30.09 Pt plans to change to IUD in June Emergency contraception education 563425245 Z30.012 Plan B discussed Venereal d isease screening 536375163 Z11.3 GC/CT done Education about sexually transmitted disease prevention 916148457 Z70.8 Contracept ion care management 794928479 Z30.014 Z30.430 Desires IUD, will check insurance for precert; cytotec, ibuprofen and RTO (cont COCs till insertion) Health Concerns Section Related Observation LastModified by Organization Detai ls LastModified Time None Recorded Concern Status LastModified by Organization Details LastModified Time None Recorded Advance Directives Directive None Recorded Payers Encounter Date Sequence Insurance Name Policy Number Policy Tao Covered Member ID Tao Member ID Guarantor Name 04/24/2015 1 [employer] [facility] [id number] Merleolga Ocamposey [id number] 3 April Aaron 05/19/2015 1 [employer] [id number] Merleolga Ocamposey [id number] 3 April Aaron 05/14/2016 1 [employer] [id number] [place] [id number] 3 April Walker Notes Date Note Type Note Provider Name and Address Organization Details Recorded Time 05/14/2016 text/html [facility] Annual GYNReported bypatient.History:n o gynecologic complaints; no change in interval history Menstrual cycle:Normal menses Urinary symptoms:No hematuria; No incontinence Vulva:No genital lesion Vagina:Normal vaginal discharge Breast:No breast pain; No breast lump; No nipple discharge Current Contraception:Wants to discuss contraceptive options Sexual complaints:No sexual complaints; No pain during intercourse; Normal libido Psychological symptoms:No depression; No anxiety; No PMDD Preventive measures:Encourage self breast examination; Encourage regular exercise; Encourage no tobacco use; encourage safe sex ABHI MUKHERJEE APRN [address] [facility], [address], [place], [address], [place] - [facility] 05/14/2016 10:33:54 OBGyn Episode No OBEpisode recorded.
== END 2024-10-26 11:50 | disposition home or self-care (01) ==
PROVIDERS: PCP Nurse Practitioner Family; Visit Provider Nurse Practitioner Family
DX: Z76.89 Persons encountering health services in other specified circumstances (principal); Z34.90 Encounter for supervision of normal pregnancy, unspecified, unspecified trimester; G43.009 Migraine without aura, not intractable, without status migrainosus; Z80.41 Family history of malignant neoplasm of ovary; R21 Rash and other nonspecific skin eruption; F41.9 Anxiety disorder, unspecified; E66.01 Morbid (severe) obesity due to excess calories; R01.0 Benign and innocent cardiac murmurs

== ENCOUNTER → 2024-10-26 10:53 | Outpatient (BNVA) | payer OTHER, SELFPAY | PROVIDERS: PCP Nurse Practitioner Family; Visit Provider Nurse Practitioner Family | DX: Z76.89 Persons encountering health services in other specified circumstances (principal); O99.350 Diseases of the nervous system complicating pregnancy, unspecified trimester; G43.909 Migraine, unspecified, not intractable, without status migrainosus; O26.899 Other specified pregnancy related conditions, unspecified trimester; R21 Rash and other nonspecific skin eruption; R01.0 Benign and innocent cardiac murmurs; O99.340 Other mental disorders complicating pregnancy, unspecified trimester; F41.9 Anxiety disorder, unspecified; O99.210 Obesity complicating pregnancy, unspecified trimester; E66.01 Morbid (severe) obesity due to excess calories; Z3A.00 Weeks of gestation of pregnancy not specified; Z80.41 Family history of malignant neoplasm of ovary | CPT/HCPCS: 96127 ==

== ENCOUNTER 2025-01-03 11:46 | Outpatient (AMB) | payer OTHER, SELFPAY ==
--- OUTSIDE RECORDS SUMMARY | 2025-01-03 12:01 | XMS_ITS | Data Portability ---
Author Organization [place] - [facility], [facility] Address [address] [facility] [address] [place] [address] Assessment No assessment recorded. Plan of Treatment Reminders Order Date Submit Date Provider Last Modified By Organization Details Last Modified Time Details Appointments None recorded. Lab CT + NG DNA, PCR, unspecifi ed specimen 2015 016 DBA_PATCH_2 [id number] [facility], [address] [place], [address] 6 04:17:52 pap, LB + HPV 2014 015 BETTYE Not available 5 14:43:46 Referral None recorded. Procedures None recorded. Surgeries None recorded. Imaging None recorded. Medication Orders Tri-Estar ylla (28) 0.18 mg(7)/0.2 15 mg(7)/0.2 5 mg(7)-0.0 35 mg tablet 2015 016 DBA_PATCH_2 [id number] [facility], [address] [place], [address], 6 04:17:40 Cytotec 100 mcg tablet 2015 016 DBA_PATCH_2 [id number] [facility], [address] [place], [address], 6 04:18:23 metronida zole 500 mg tablet 2014 015 milouphavan [facility], [address] [place], [address], 6 10:01:31 Tri-Estar ylla (28) 0.18 mg(7)/0.2 15 mg(7)/0.2 5 mg(7)-0.0 35 mg tablet 2014 015 INTERFACE [id number] [address] [facility], [address], 5 09:51:59 Patient TargetsNo targets recorded. Patient Instructions Encounter Date Encounter Id Patient Instructions Last Modified By Organization Details Last Modified Time 04/24/2015 [id number] Patient presents for a well woman exam. 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 [email or web address] Not available 04/24/2015 09:26:27 05/14/2016 [id number] Patient presents for a well woman exam. 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 Not Available [facility] [address] [place], [address], 05/20/2015 14:43:46 05/19/20 15 05/20/2015 CT + NG DNA, PCR, unspe cifie d speci men source Unspec ified Not Available [facility] [address] [place], [address], 05/20/2015 14:43:46 05/19/20 15 05/20/2015 CT + NG DNA, PCR, unspe cifie d speci men chlamydia by DNA Negati ve negati ve Not Available [facility] [address], [place], [address], 05/20/2015 14:43:46 05/19/20 15 05/20/2015 CT + NG DNA, PCR, unspe cifie d speci men GC by DNA Negati ve negati ve Not FDA appro luli for GC/Ch lamyd ia in femal e urine speci mens. Test valid ated by CT for detec ting GC/Ch lamyd ia from this [facility] e. Not Available [facility] [address] [facility], [place], [address], 05/20/2015 14:43:46 05/14/20 16 05/17/2016 CT + NG DNA, PCR, unspe cifie d speci men source CVX Not Available [facility] [address] [place], [address] 05/17/2016 13:54:19 05/14/20 16 05/17/2016 CT + NG DNA, PCR, unspe cifie d speci men chlamydia by DNA Negati ve negati ve Not Available [facility] [address] [place], [address] 05/17/2016 13:54:19 05/14/20 16 05/17/2016 CT + NG DNA, PCR, unspe cifie d speci men GC by DNA Negati ve negati ve Not FDA appro luli for GC/Ch lamyd ia in femal e urine speci mens. Test valid ated by [facility] for detec ting GC/Ch lamyd ia from this [facility] e. Not Available [facility] [address] [place], [address] 05/17/2016 13:54:19 Result Notes None recorded. Problems Name Problem SNOMED Code Status Onset Date Resolution Date Notes Provider Name and Address Organization Details Recorded Time Cholecystiti s 80051155 Active Zaida nichols null, [facility] 5 09:20:02 Heart murmur 15950687 Active Zaida nichols null, [facility] 5 09:20:02 Seizure disorder 406395799 Active One episode age [age]. Zaida nichols null, [facility] 5 09:20:02 Depressive disorder 96361221 Active Zaida nichols null, [facility] 5 09:20:02 Tampon retained in vagina 680629521 Active ABHI KHAN RO, PAPER FEEDER [address] [facility], [address], [place], [address] [place], [place] [address] 5 09:51:56 Problem Notes None recorded. Procedures Surgical History Date Name Laterality Status Provider Name and Address Organization Details Recorded Time 015 Date of Last Pap Smear completed Soraya Calvo [facility] 05/13/2016 16:37:50 Cholecystectomy completed Not Available [facility] 01/03/2015 13:51:18 Imaging Results None recorded. Procedure Notes None recorded. Medical Equipment None Reported. Allergies Allergen ID Allergen Name Allergen Category Reaction Reaction Severity Criticality Documentation Date Start Date Code Code System Note Provider Name and Address Organization Details Recorded Time 569570 No known allergy (situatio n) Not available Not available Not available Not available 01/07/20152013 78817 6003 SNOMED Not Available [facility] 5 17:50:06 No known drug allergies Medications [...] Updated DateTime 04/24/2015 172.72 cm 33 kg/m2 41435.54 429 g 116 mm[Hg] 74 mm[Hg] Zaida nichols [facility] 5 09:47:36 Date Recorded Body height Body weight Body mass index (BMI) Systolic blood pressure Diastolic blood pressure Provider Name and Address Organization Details Last Updated DateTime 05/14/2016 172.72 cm 490157.3 7 g 38 kg/m2 120 mm[Hg] 80 mm[Hg] Hansa Hernández [facility] 6 10:01:01 Date Recorded Body weight Body mass index (BMI) Body height Systolic blood pressure Diastolic blood pressure Provider Name and Address Organization Details Last Updated DateTime 05/19/2015 72765.13 666 g 33.1 kg/m2 172.72 cm 124 mm[Hg] 84 mm[Hg] Martha Valdez [facility] 5 15:40:49 Social History Question Answer Notes LastModified by Organizat ion Details LastModified Time Tobacco Smoking Status Never Smoker Zaida Grecia muro, [facility] 04/24/2015 09:20:02 How Much Tobacco Do You Smoke? No Information not available 04/24/2015 Sex: Unknown Functional Status Question Answer Note LastModified by Organization D etails LastModified Time What is your level of alcohol consumption? None Information not available 04/24/2015 Mental Status None recorded. Family History Relationship [...] SNOMED-CT Code Diagnosis ICD10 Code Diagnosis Note [id number] [facility] [address] [place] [address] 01/16/2013 00:00:00 [id number] [facility] [address] [place] [address] 01/21/2014 00:00:00 [id number] ABHI Fernández APRN [address] [place] [address] 04/24/2015 08:54:55 04/24/2015 09:47:37 Gynecologic examination 05475397 Pap smears starting at age 21 then q 2 as indicated, encourage healthy diet & exercise, 1200 mg calcium per diet or supplement ation, 600 mg magnesium and 600 iu Vit D per day, encourage safe sex at all times and monthly self breast exam. PAP deferred due to retained tampon, RTO 2 weeks for pap and cultures Contracept ion care education 110375486 Emergency contraception education 926555393 Plan B discussed Tampon ret ained in vagina 121950387 [id number] ABHI Fernández APRN [address] [place] [address] 05/19/2015 15:18:43 05/19/2015 16:04:35 Screening for malignant neoplasm of cervix 220434847 Z12.4 [id number] ABHI Fernández APRN WHN9 [address] [place] [address] 05/14/2016 09:55:08 05/14/2016 10:25:29 Gynecologic examination 76722987 Z01.411 Z01.419 Pap smears starting at age 21 then q 2 as indicated, encourage healthy diet & exercise, 1200 mg calcium per diet or supplement ation, 600 mg magnesium and 600 iu Vit D per day, encourage safe sex at all times and monthly self breast exam Contracept ion care education 904093382 Z30.09 Pt plans to change to IUD in June Emergency contraception education 185576993 Z30.012 Plan B discussed Venereal d isease screening 910816825 Z11.3 GC/CT done Education about sexually transmitted disease prevention 858923527 Z70.8 Contracept ion care management 986634894 Z30.014 Z30.430 Desires IUD, will check insurance for precert; cytotec, ibuprofen and RTO (cont COCs till insertion) Health Concerns Section Related Observation LastModified by Organization Detai ls LastModified Time None Recorded Concern Status LastModified by Organization Details LastModified Time None Recorded Advance Directives Directive None Recorded Payers Insurance Date Sequence Insurance Name Policy Number Policy Tao Covered Member ID Tao Member ID Guarantor Name 06/26/2016 1 DAVY [id number] Merle Walker [id number] 3 April Walker Notes Date Note Type Note Provider Name and Address Organization Details Recorded Time 05/14/2016 text/html [facility] Annual GYNReported bypatient.History:n o gynecologic complaints; no [...] use; encourage safe sex ABHI MUKHERJEE APRN [address] [place] [address], [address] Floor, [place], [address], [place] - [facility] 05/14/2016 10:33:54 OBGyn Episode No OBEpisode recorded.
--- NOTE | 2025-01-03 12:08 | HO.NEPHOV_ITS ---
Vital Signs 01/03/25 12:09 Height 5 ft 8 in Weight 310 lb 2 oz BMI 47.1 BP 118/70 Blood Pressure Location Lt brachial Position Sitting Pulse 94 Pulse Source Pulse Oximeter Pulse Oximetry (%) 96 Oxygen Delivery Method Room Air Intake Visit Reasons: 6mon follow up-Conf Senior Web Analyst Required: No Accompanied by: Self / Same As Patient Allergies No Known Allergies Allergy (Verified 01/03/25 12:09) HPI Comments Details: I had the privilege of seeing April in follow up for high serum creatinine. She was seen by steam meter reader in [facility] regarding possible kidney disease. She had a serum creatinine 1.4 in November of 2021 which had improved to 1.3 in December of 2022 which further improved to 1.12. She had taken Topamax 100 mg for at least a year and a half prior to creatinine of 1.4( She had nausea , diarrhea with poor appetite prior to that) She had a gallbladder surgery in 2010 but is unsure about her serum creatinine at that time. She had another set of blood work done in 2017 as routine checkup. She claimed that nobody had mentioned any abnormal serum creatinine on both of those occasions. She has no history of recurrent UTI as a child. She has no history of any cocaine use. She has gained about 100 lb in weight when she went to college. She is not a diabetic . She has no joint pains, joint swellings, pedal edema, microscopic hematuria, recurrent sore throat, sinusitis, photosensitivity, skin rashes. She has no family history of any renal diseases, renal replacement or transplantation. She has no history of any cardiac issues. He is not known to have any proteinuria but was mentioned that she has had microscopic hematuria. She had COVID in January of 2022. She denies any nephrolithiasis, hearing deficits. She had some tiredness and hair loss in 2021 for which she was tested for hypothyroidism which was negative but was found to have a serum creatinine of 1.4 that time. Her blood pressure always have been well controlled. She had been investigated for lupus and other autoimmune conditions which were all negative. Renal ultrasound done in February of 2023 showed a right kidney of 10.4 cm and left kidney of 10.9 cm. She has history of right ovarian cyst removal in 2021. She had undergone genetic testing which was negative for any renal diseases. She maintains good hydration and avoids nonsteroidal anti-inflammatories. She is now. Her LMP was May 05 2024. She did not have any new active complaints at the time of this office visit. [facility] Medical History Obesity Migraine GERD (gastroesophageal reflux disease) Chronic kidney disease, stage 3 Anxiety Surgical History History of removal of ovarian cyst Hx of cholecystectomy Family History Brother Heart disease Paternal Grandmother Leukemia Maternal Aunt Ovarian cancer Maternal Uncle Esophageal cancer Maternal Grandfather Alcoholism Other FH: mental illness Substance abuse Social History Housing: House Alcohol intake: current Comment: Socially Patient Tobacco Use Status: Never used Tobacco e-Cigarette/Vaping Use: Never Used service: No Current occupational status: employed 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[employer] Current occupational exposures/hazards: No Cognitive needs: No Hearing needs: No Vision needs: Yes (glasses) Review of Systems Const All systems reviewed & are unremarkable except as noted in HPI and below Physical Exam Vital Signs: Last Vital Signs Pulse 94 01/03/25 12:09 BP 118/70 01/03/25 12:09 Pulse Ox 96 01/03/25 12:09 Oxygen Delivery Method Room Air 01/03/25 12:09 BMI result Body Mass Index 47.1 Const General: comfortable and no acute distress Orientation/consciousness: patient oriented x3 HEENT Head: Yes normocephalic Mouth: Normal oral and palatal mucosa present Eyes EOM: EOMs intact bilaterally Neck Neck: Yes supple Resp Auscultation: clear to auscultation bilaterally Cardio Jugular venous distension: no JVD Rate: regular rate GI Palpation (GI): Soft to palpation Auscultation: normal bowel sounds General: Yes no CVA tenderness Back/Spine/Pelvis Back: no CVA tenderness Skin General skin exam: no rashes or lesions noted Neuro General: patient oriented x3 and moves all extremities Extrem General: Yes no pedal edema Assessment & Plan Assessment & Plan (1) Serum creatinine raised: Code(s): R79.89 - Other specified abnormal findings of blood chemistry Category: Medical Plan She had a serum creatinine 1.4 in November of 2021 which had improved to 1.3 in December of 2022 which further improved to 1.12 and it is less than 1.0 now. She had a gallbladder surgery in 2010 but is unsure about her serum creatinine at that time. She had another set of blood work done in 2018 as routine checkup. She claimed that nobody had mentioned any abnormal serum creatinine on both of those occasions. She had COVID in January of 2022. She is unsure whether she had any tubular injury at that time. No history of recurrent UTI as a child. She has no history of any cocaine use/Hepatitis/HIV. Renal ultrasound done in February of 2023 showed a right kidney of 10.4 cm and left kidney of 10.9 cm. She is trying to retrieve medical records from 27/06 and 2017 to see what her serum creatinine was at that time. She had genetic testing done for renal disease which was negative. Her further workup was negative. Her creatinine clearance was normal. She has not had a renal biopsy. She is not known to have any h ypertension, proteinuria. She has history of microscopic hematuria giving a differential diagnosis of IgA nephropathy or thin basement membrane disease. She maintains good hydration and avoid nonsteroidal anti-inflammatories. I did not make any medication changes today. No renal biopsy indicated now. Answered all questions. Orders: Orders Electrolytes 1 Year - Other specified abnormal findings of blood chemistry Blood Urea Nitrogen 1 Year - Other specified abnormal findings of blood chemistry Creatinine 1 Year - Other specified abnormal findings of blood chemistry UA and rflx microscopic 1 Year - Other specified abnormal findings of blood chemistry Protein Creatinine Ratio, Ur 1 Year - Other specified abnormal findings of blood chemistry Calcium 1 Year - Other specified abnormal findings of blood chemistry Coding Level of Care Code Est Pt Level 4 (29919) Diagnoses Serum creatinine raised
[2025-01-03 12:09] VITALS: BP 118/70; PULSE 94; O2SAT 96; BMI 47.1
== END 2025-01-03 12:49 | disposition home or self-care (01) ==
LOC: HO.HKAS 11:47
PROVIDERS: Visit Provider Internal Medicine Nephrology
DX: R79.89 Other specified abnormal findings of blood chemistry (principal)
CPT/HCPCS: 99214

== ENCOUNTER → 2025-01-03 11:46 | Outpatient (BNVA) | payer OTHER, SELFPAY | PROVIDERS: Visit Provider Internal Medicine Nephrology ==

== ENCOUNTER 2025-02-14 13:25 | Outpatient (AMB) | payer OTHER, SELFPAY ==
--- NOTE | 2025-02-14 13:41 | A.OFFPC_ITS ---
Vital Signs 02/14/25 13:43 Height 5 ft 8 in Weight 286 lb BMI 43.5 BP 106/72 Blood Pressure Location Lt brachial Position Sitting Respiration 14 Pulse 80 Pulse Source Pulse Oximeter Temp 98.2 F Temp Source Oral Pulse Oximetry (%) 96 Oxygen Delivery Method Room Air Intake Visit Reasons: 'post depression' Intake Note: Possible depression Hoisting Engineer Required: No Allergies No Known Allergies Allergy (Verified 02/14/25 14:04) Medication List - Last Reconciled 02/14/25 by Michaela Collado, EQUIPMENT HIRE MANAGER- buspirone 30 mg PO DAILY citalopram 40 mg PO DAILY PNV,calcium 44-muvp-vkaln acid 27 mg iron- 1 mg (M- Plus) 1 tab PO DAILY Tobacco use date assessed: 02/14/25 Dental Screening Dental Screen Date: 10/26/24 HPI HPI Comments History of Present Illness Details 29 y/o F with family hx of ovarian ca (m aternal aunt), migraines w/o aura, MDD, RADHA, Obesity, heart murmur Family hx: brother w/ Aortic stenosis Social: works at [employer] in [place], ( [place]), baby girl, Cinthia, born 02/2025 Health Maintenance: Flu UTD Tdap will get during current Specialists Renal DISCOVERY GUIDE 2 weeks tomorrow Not sleeping Breast feeding Crying Dtr Stopped breast feeding Tuesday Sister there helping History of Present Illness - The patient is a 29-year-old female pr esenting with anxiety and depression. - Symptoms initiated post childbirth two weeks ago, linked with sleep deprivation and strain. - Experienced a crisis on a Tuesday nilsa acterized by intense crying and overwhelming feelings. - Ceased Tuesday, found pu mping unsustainable, noticed improvement when stopping . - Reports heightened anxiety about partn er's absence, fears surrounding potential dangers. - Sister, an MARKETING PROPOSAL SPECIALIST, has been supportive; Does not have a lot of local support will return to work in about 1 month; she will return in Nov - She is being treated for generalized a nxiety disorder with citalopram and buspirone. - Anxious about being alone when her par tner resumes work. - Denies Si/HI. Does not want to harm ba by; feels like what have i done . Has a counselor - appt yesterday Next OB Fu in 1 month Denies hearing voices or any hallucinations. Here w/ who corroborates. Review of Systems - Psychological: Reports anxiety and fee ling overwhelmed post childbirth. Physical Exam General: Well developed, well nourished, in no acute distress. Appears stated age. Head: Normocephalic, atraumatic. Eyes: Pupils are equal, round and reactive to light and accommodation. Psych: Mood and affect appropriate, tearful when talking about her experiences; smiling and showing me pictures of Cinthia, holding husbands hand. is supportive and caring Discussion Notes I discussed with the patient that her symptoms of anxiety and overwhelming feelings after childbirth are common but need management. We reviewed her current medications, citalopram and buspirone, emphasizing that her long- standing treatment could benefit from adjustments. Specifically, we considered increasing buspirone dosage to provide better control over anxiety symptoms. The patient was encouraged to seek support from family and social groups, with an emphasis on self-care and taking breaks when feasible. Follow-up was planned in four weeks to reassess her mental health, with an option to contact me earlier if symptoms worsen. Assessment and Plan 1. Anxiety/Depression - Increase buspirone gradually, add 7.5 mg at HS increase 7.5mg q1 week to max of 30mg/day (max dose 30 mg BID) - Maintain citalopram. - Utilize family support systems. - Join groups - Crisis info provided - Close interim fu Patient Instructions - Increase buspirone slowly as instructe d. - Continue taking citalopram as prescrib ed. - Rely on family and friends for support . - Seek immediate help if feelings of nick m or distress increase. - Schedule and attend follow-up in four weeks or contact earlier as needed. Consent Patient was informed and verbally consented to the use of an ambient scribe for clinic note documentation during this visit. Total time spent caring for the patient today was 45 minutes. This includes time spent before the visit reviewing the chart, time spent during the visit, and time spent after the visit on documentation, reviewing laboratory results, diagnostic imaging, medications, performing a medically necessary evaluation, counseling on diagnoses, care coordination, ordering appropriate tests, ordering appropriate medications, review of tests performed by other providers, reporting test results with the patient, communication with other healthcare providers. [facility] Medical History Obesity Migraine GERD (gastroesophageal reflux disease) Chronic kidney disease, stage 3 Anxiety Surgical History History of removal of ovarian cyst Hx of cholecystectomy Family History Brother Heart disease Paternal Grandmother Leukemia Maternal Aunt Ovarian cancer Maternal Uncle Esophageal cancer Maternal Grandfather Alcoholism Other FH: mental illness Substance abuse Social History Housing: House Alcohol intake: current Comment: Socially Patient Tobacco Use Status: Never used Tobacco e-Cigarette/Vaping Use: Never Used service: No Current occupational status: employed 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[employer] Current occupational exposures/hazards: No Cognitive needs: No Hearing needs: No Vision needs: Yes (glasses) Questionnaire Thrive Questionnaire Date Thrive assessed: 10/19/24 I am a: Patient What is your living situation today?: I have a steady place to live Within the past 12 months, did the food you bought not last and you didn't have the money to get more?: Never true Within the past 12 months, did you worry whether your food would run out before you got money to buy more?: Never true Do you have trouble paying for medicines?: No Do you have trouble getting transportation to medical appointments?: No Do you have trouble paying your heating and electricity bill?: No Do you have trouble taking care of your child, family member or friend?: No Do you have trouble with day-to-day activities such as bathing, preparing meals, shopping, managing finances, etc.?: No Are you currently unemployed and looking for a job?: No Are you interested in more education?: Yes Please select the resources that you would like help with: None Currently or been in a relationship where the following occur: No concerns reported THRIVE Score: 0 AUDIT C Alcohol Use Questionnaire (AUDIT-C) 1. How often do you have a drink containing alcohol?: Never 3. How often do you have six or more drinks on one occasion?: Never Total Score: 0 RADHA-7 AMB Questionnaire RADHA-7 Date RADHA - 7 assessed: 10/26/24 Source: Developed by Drs. Tio Reynoso, Stacie Stanley, Mateusz Espinal and colleagues, with an educational annette from [employer]. Physical exam (Primary Care) Vital Signs: Last Vital Signs Temp 98.2 F 02/14/25 13:43 Pulse 80 02/14/25 13:43 Resp 14 02/14/25 13:43 BP 106/72 02/14/25 13:43 Pulse Ox 96 02/14/25 13:43 Oxygen Delivery Method Room Air 02/14/25 13:43 BMI result Body Mass Index 43.5 Tobacco/Smoking Status: Tobacco use Status Tobacco use date assessed 02/14/25 02/14/25 13:46 Patient Tobacco Use Status Never used Tobacco 02/14/25 13:46 e-Cigarette/Vaping Use Never Used 02/14/25 13:46 Thrive Assessment: Date of Thrive Assessment Date Thrive assessed 10/19/24 02/14/25 13:46 Currently or been in a relationship where the following occur: No concerns reported Coding Level of Care Code Est Pt Level 5 (78934) Complex EM visit Add On G2211 Diagnoses depression F53.0 Assessment & Plan Assessment & Plan (1) depression: Code(s): F53.0 - depression Category: Medical Plan . Medications: New buspirone 15 mg PO BID 60 tabs 1RF Patient Instructions: National Suicide and Crisis Lifeline: Available 24 hours a day, 7 days a week, 365 days a year Dial 988 with any telephone to speak to someone immediately [facility] [address] [place] [phone] , Walk ins [facility] (Mental / Behavioral health therapist: [address] [place], [place] [id number] [facility]: [address] [place] [address] Open from 10am - 12pm (walk ins douglas) [facility] Crisis Services: [address] [place] [address] Walk in hours from 10am - 12pm Behavioral health Network: [address] [place] [address] [place] [phone] Tuesday through Tuesday 8am - 8pm Tuesday and Tuesday 9am - 5pm Crisis Hotlines Suicide prevention, domestic violence, and other crisis hotlines for youth, young adults, and their friends and families. [facility]: The [facility] helps youth who have run away, are thinking about running away, or who already ran away but are ready to come home. Parents and guardians can also contact the hotline if they are worried about their child running away or if their child has already left home. The hotline is available 24 hours a day, seven days a week. Youth, parents, and guardians can also use the online chat feature on the [facility]'s website to ask for help and get support, [place] [address]. [facility] National Suicide Prevention Lifeline: The [place] Suicide Prevention Lifeline is a network of local crisis centers that are available 24/ to provide support for youth and adults who are in any kind of emotional crisis. In addition to the main hotline number listed above, there are several other numbers to call depending on your needs: Scottish Language: Deaf and Hard of Hearin1-245.353.5142 Veterans: Disaster Distress: Anyone can also use their online chat feature on their website. [place] Suicide Prevention Lifeline [facility] Helpline: The [facility] Helpline is available to anyone in [place] who is need of emotional support. Anyone can call or text the helpline to receive help from specially trained volunteers. [place] high school and college students can also get online support through the IMHear_ program. For high school students, volunteers ages 15-18 are available Tuesday- from 6-9PM. For college students, IMHear_ is available Tuesday-Tuesday from 5-9PM. The Heron Project - The Heron Project is a 24/ crisis intervention and suicide prevention hotline for LGBTQ youth. Youth can also text Heron to for support, or use the online chat feature on the Heron Project's website. TrevorText is available Tuesday-Tuesday between 3-10PM. TrevorChat is available seven days a week between 3-10PM. SafeLink: SafeLink is for anyone who is being affected by domestic violence or dating violence. Volunteers at [employer] speak French and Scottish, and [employer] also has a service that can provide translation in more than 130 languages. TTY:
[2025-02-14 13:43] VITALS: BP 106/72; PULSE 80; RESP 14; TEMP 36.8; O2SAT 96; BMI 43.5
== END 2025-02-14 14:39 | disposition home or self-care (01) ==
LOC: HO.HMCFM 13:26
PROVIDERS: PCP Nurse Practitioner Family; Visit Provider Nurse Practitioner Family
DX: F53.0 Postpartum depression (principal)

== ENCOUNTER 2025-03-08 08:59 | Outpatient (AMB) | payer OTHER, SELFPAY ==
--- NOTE | 2025-03-08 09:01 | MHC.PC.OV ---
Vital Signs 03/08/25 09:06 Height 5 ft 8 in Weight 282 lb 6 oz BMI 42.9 BP 118/70 Blood Pressure Location Lt brachial Position Sitting Respiration 12 Pulse 75 Pulse Source Pulse Oximeter Temp 97.6 F Temp Source Oral Pulse Oximetry (%) 96 Oxygen Delivery Method Room Air Intake Visit Reasons: 03/08 at 9am 30 min FU PPD Intake Note: Follow up Box Toe Cutter Required: No Allergies No Known Allergies Allergy (Verified 03/08/25 09:18) Medication List - Last Reconciled 03/08/25 by Michaela Collado, SHARK BIOLOGIST- buspirone 30 mg PO DAILY buspirone 15 mg PO BID citalopram 40 mg PO DAILY PNV,calcium 46-qkuf-vkifh acid 27 mg iron- 1 mg (M-Yulia Plus) 1 tab PO DAILY Tobacco use date assessed: 03/08/25 Dental Screening Dental Screen Date: 03/08/25 Did you have a dental visit in the last 12 months?: Yes Did you have a dental problem in the last 6 months where you did not have access to dental care?: No Was dental information given to patient?: Patient has dentist HPI HPI Comments History of Present Illness Details 29 y/o F with family hx of ovarian ca (maternal aunt), migraines w/o aura, MDD, RADHA, Obesity, heart murmur Family hx: brother w/ Aortic stenosis Social: works at [employer] in [place] [employer], ( [employer]if), baby girl, Cinthia, born 02/2025 Health Maintenance: Flu UTD Tdap will get during current Specialists Renal DIRECTOR OF CLINICAL APPLICATIONS Here today for a close interim follow up. Since last office visit she has increased her buspirone, she continues on citalopram 40 mg daily. 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 She will continue this for 2 weeks. She has had profound improvement in her mood. She denies SI or HI. Physical Exam General: Well developed, well nourished, in no acute distress. Appears stated age. Head: Normocephalic, atraumatic. Eyes: Pupils are equal, round and reactive to light and accommodation. Psych: Mood and affect appropriate, smiling and showing me pictures of Cinthia Assessment and Plan 1. Anxiety/Depression - Cont buspirone 30mg/day (max dose 30 mg BID) - Maintain citalopram. - Complete Zurzuvae?(zuranolone) - Utilize family support systems. - Join groups - Crisis info provided - RTO Oct as scheduled, sooner PRN Total time spent caring for the patient today was 30 minutes. This includes time spent before the visit reviewing the chart, time spent during the visit, and time spent after the visit on documentation, reviewing laboratory results, diagnostic imaging, medications, performing a medically necessary evaluation, counseling on diagnoses, care coordination, ordering appropriate tests, ordering appropriate medications, review of tests performed by other providers, reporting test results with the patient, communication with other healthcare providers. COUNTS INCLUDE 234 BEDS AT THE [facility] Medical History Obesity Migraine GERD (gastroesophageal reflux disease) Chronic kidney disease, stage 3 Anxiety Surgical History History of removal of ovarian cyst Hx of cholecystectomy Family History Brother Heart disease Paternal Grandmother Leukemia Maternal Aunt Ovarian cancer Maternal Uncle Esophageal cancer Maternal Grandfather Alcoholism Other FH: mental illness Substance abuse Social History Housing: House Alcohol intake: current Comment: Socially Patient Tobacco Use Status: Never used Tobacco e-Cigarette/Vaping Use: Never Used service: No Current occupational status: employed 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[employer] Current occupational exposures/hazards: No Cognitive needs: No Hearing needs: No Vision needs: Yes (glasses) Questionnaire Thrive Questionnaire Date Thrive assessed: 10/19/24 I am a: Patient What is your living situation today?: I have a steady place to live Within the past 12 months, did the food you bought not last and you didn't have the money to get more?: Never true Within the past 12 months, did you worry whether your food would run out before you got money to buy more?: Never true Do you have trouble paying for medicines?: No Do you have trouble getting transportation to medical appointments?: No Do you have trouble paying your heating and electricity bill?: No Do you have trouble taking care of your child, family member or friend?: No Do you have trouble with day-to-day activities such as bathing, preparing meals, shopping, managing finances, etc.?: No Are you currently unemployed and looking for a job?: No Are you interested in more education?: Yes Please select the resources that you would like help with: None Currently or been in a relationship where the following occur: No concerns reported THRIVE Score: 0 RADHA-7 AMB Questionnaire RADHA-7 Date RADHA - 7 assessed: 10/26/24 Source: Developed by Drs. Tio Reynoso, Stacie Stanley, Mateusz Espinal and colleagues, with an educational annette from [employer]. Physical exam (Primary Care) Vital Signs: Last Vital Signs Temp 97.6 F 03/08/25 09:06 Pulse 75 03/08/25 09:06 Resp 12 03/08/25 09:06 BP 118/70 03/08/25 09:06 Pulse Ox 96 03/08/25 09:06 Oxygen Delivery Method Room Air 03/08/25 09:06 BMI result Body Mass Index 42.9 Tobacco/Smoking Status: Tobacco use Status Tobacco use date assessed 03/08/25 03/08/25 09:02 Patient Tobacco Use Status Never used Tobacco 03/08/25 09:02 e-Cigarette/Vaping Use Never Used 03/08/25 09:02 Thrive Assessment: Date of Thrive Assessment Date Thrive assessed 10/19/24 03/08/25 09:02 Currently or been in a relationship where the following occur: No concerns reported Coding Level of Care Code Est Pt Level 4 (28429) Complex EM visit Add On G2211 Diagnoses depression F53.0 Assessment & Plan Assessment & Plan (1) depression: Code(s): F53.0 - depression Category: Medical Plan ,
[2025-03-08 09:06] VITALS: BP 118/70; PULSE 75; RESP 12; TEMP 36.4; O2SAT 96; BMI 42.9
== END 2025-03-08 12:09 | disposition home or self-care (01) ==
LOC: HO.HMCFM 08:59
PROVIDERS: PCP Nurse Practitioner Family; Visit Provider Nurse Practitioner Family
DX: F53.0 Postpartum depression (principal)

== ENCOUNTER 2025-05-20 11:31 | Outpatient (AMB) | payer OTHER, SELFPAY ==
--- NOTE | 2025-05-20 11:43 | MHC.PC.OV ---
Vital Signs 05/20/25 11:46 Height 5 ft 8 in Weight 288 lb BMI 43.8 BP 122/70 Blood Pressure Location Rt brachial Position Sitting Respiration 12 Pulse 72 Pulse Source Pulse Oximeter Temp 97.8 F Temp Source Oral Pulse Oximetry (%) 98 Oxygen Delivery Method Room Air Intake Visit Reasons: 30 min routine fu post Intake Note: Routine Follow up Secretary To Board Of Commissioners Required: No Allergies No Known Allergies Allergy (Verified 05/20/25 11:48) Medication List - Last Reconciled 05/20/25 by Michaela Collado, [facility]- buspirone 30 mg PO DAILY citalopram 40 mg PO DAILY PNV,calcium 75-fovc-zsdsl acid 27 mg iron- 1 mg (M- Plus) 1 tab PO DAILY Tobacco use date assessed: 05/20/25 Dental Screening Dental Screen Date: 05/20/25 Did you have a dental visit in the last 12 months?: Yes Did you have a dental problem in the last 6 months where you did not have access to dental care?: No Was dental information given to patient?: Patient has dentist HPI HPI Comments History of Present Illness Details 29 y/o F with family hx of ovarian ca (maternal aunt), migraines w/o aura, MDD, RADHA, Obesity, heart murmur, depression Family hx: brother w/ Aortic stenosis Social: works at [employer] in [employer], ( [employer]), baby girl, Rachele, born 02/2025 Health Maintenance: Flu 05/2025 Tdap 2024 [facility] Counseling/Med Provider Here today for PPD fu things are better than before dtr dx w bad reflux; sleeping through the night! will be meeting w/ GI for her. Has a new therapist; this is a good fit. Will be meeting w/ med provider this week Anxiety sx are still severe cant function Depressive sx come and go; not as intrusive Never feels like she cant do something In love with child Feels more exhausted than hopeless Wonders if she has OCD - this is not an official dx @ this time Feels she has compulsions or rituals to help to cope NOt back to work yet; will go back in Jun. Looking FWD to going back Dtr will go to daycare in Aug she is worried about this is good support. They are fighting d/t parental stress. Denies si/hi. IUD placed 04/2025; has constant spotting Physical Exam General: Well developed, well nourished, in no acute distress. Appears stated age. Head: Normocephalic, atraumatic. Eyes: Pupils are equal, round and reactive to light and accommodation. LS CTAB 08/13 murmur RRR Psych: Mood and affect appropriate, Assessment and Plan 1. Anxiety/Depression cont meds, care w/ counselor and med prescriber 2. IUD spotting, fu with [employer] if this persists RTO in October for CPE, labs 1 week before Total time spent caring for the patient today was 30 minutes. This includes time spent before the visit reviewing the chart, time spent during the visit, and time spent after the visit on documentation, reviewing laboratory results, diagnostic imaging, medications, performing a medically necessary evaluation, counseling on diagnoses, care coordination, ordering appropriate tests, ordering appropriate medications, review of tests performed by other providers, reporting test results with the patient, communication with other healthcare providers. [facility] Medical History Obesity Migraine GERD (gastroesophageal reflux disease) Chronic kidney disease, stage 3 Anxiety Surgical History History of removal of ovarian cyst Hx of cholecystectomy Family History Brother Heart disease Paternal Grandmother Leukemia Maternal Aunt Ovarian cancer Maternal Uncle Esophageal cancer Maternal Grandfather Alcoholism Other FH: mental illness Substance abuse Social History Housing: House Alcohol intake: current Comment: Socially Patient Tobacco Use Status: Never used Tobacco e-Cigarette/Vaping Use: Never Used service: No Current occupational status: employed 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[employer] Current occupational exposures/hazards: No Cognitive needs: No Hearing needs: No Vision needs: Yes (glasses) Questionnaire Thrive Questionnaire Date Thrive assessed: 10/19/24 I am a: Patient What is your living situation today?: I have a steady place to live Within the past 12 months, did the food you bought not last and you didn't have the money to get more?: Never true Within the past 12 months, did you worry whether your food would run out before you got money to buy more?: Never true Do you have trouble paying for medicines?: No Do you have trouble getting transportation to medical appointments?: No Do you have trouble paying your heating and electricity bill?: No Do you have trouble taking care of your child, family member or friend?: No Do you have trouble with day-to-day activities such as bathing, preparing meals, shopping, managing finances, etc.?: No Are you currently unemployed and looking for a job?: No Are you interested in more education?: Yes Please select the resources that you would like help with: None Currently or been in a relationship where the following occur: No concerns reported THRIVE Score: 0 RADHA-7 AMB Questionnaire RADHA-7 Date RADHA - 7 assessed: 10/26/24 Source: Developed by Drs. Tio Reynoso, Stacie Stanley, Mateusz Espinal and colleagues, with an educational annette from [employer]. Physical exam (Primary Care) Vital Signs: Last Vital Signs Temp 97.8 F 05/20/25 11:46 Pulse 72 05/20/25 11:46 Resp 12 05/20/25 11:46 BP 122/70 05/20/25 11:46 Pulse Ox 98 05/20/25 11:46 Oxygen Delivery Method Room Air 05/20/25 11:46 BMI result Body Mass Index 43.8 Tobacco/Smoking Status: Tobacco use Status Tobacco use date assessed 05/20/25 05/20/25 11:46 Patient Tobacco Use Status Never used Tobacco 05/20/25 11:44 e-Cigarette/Vaping Use Never Used 05/20/25 11:44 Thrive Assessment: Date of Thrive Assessment Date Thrive assessed 10/19/24 05/20/25 11:44 Currently or been in a relationship where the following occur: No concerns reported Coding Level of Care Code Est Pt Level 4 (33581) Complex EM visit Add On G2211 Diagnoses depression F53.0 Anxiety F41.9 IUD (intrauterine device) in place Z97.5 Menstrual spotting N92.0 Assessment & Plan Assessment & Plan (1) depression: Code(s): F53.0 - depression Category: Medical (2) Anxiety: Code(s): F41.9 - Anxiety disorder, unspecified Category: Medical (3) IUD (intrauterine device) in place: Onset Date: ~04/2025 Code(s): Z97.5 - Presence of (intrauterine) contraceptive device Category: Medical (4) Menstrual spotting: Code(s): N92.0 - Excessive and frequent menstruation with regular cycle Plan . Orders: Orders Complete Blood Count no Diff 10/06/25 Z00.00 - Encounter for general adult medical examination without abnormal findings Comprehensive Met. Panel 10/06/25 Z00.00 - Encounter for general adult medical examination without abnormal findings Hemoglobin A1c 10/06/25 Z00.00 - Encounter for general adult medical examination without abnormal findings Microalbumin, Random (w Creat) 10/06/25 Z00.00 - Encounter for general adult medical examination without abnormal findings Lipid Panel 10/06/25 Z00.00 - Encounter for general adult medical examination without abnormal findings TSH reflex Free T4 10/06/25 Z00.00 - Encounter for general adult medical examination without abnormal findings Vitamin B12 and Folate 10/06/25 Z00.00 - Encounter for general adult medical examination without abnormal findings Vitamin D 25-OH Total 10/06/25 Z00.00 - Encounter for general adult medical examination without abnormal findings
[2025-05-20 11:46] VITALS: BP 122/70; PULSE 72; RESP 12; TEMP 36.6; O2SAT 98; BMI 43.8
== END 2025-05-20 12:15 | disposition home or self-care (01) ==
LOC: HO.HMCFM 11:32
PROVIDERS: PCP Nurse Practitioner Family; Visit Provider Nurse Practitioner Family
DX: F53.0 Postpartum depression (principal); F41.9 Anxiety disorder, unspecified; Z97.5 Presence of (intrauterine) contraceptive device; N92.0 Excessive and frequent menstruation with regular cycle